=== PATIENT | male | born 1955 | race African-American/Black ===

== ENCOUNTER 2025-07-12 03:42 | Inpatient (IN) | payer MEDICARE, OTHER ==
[~2025-07-12] VITALS: Ht 149.9 cm; Wt 62.1 kg
[2025-07-12] MEDS ORDERED: ONDANSETRON HCL/PF 4 MG/2 ML VIAL ONE (04:21)
[2025-07-12] MEDS ORDERED: ACETAMINOPHEN ES 500 MG TABLET ONE (04:22)
[2025-07-12] MEDS: ONDANSETRON HCL/PF 4 MG/2 ML VIAL IVP ONE (04:25)
[2025-07-12] MEDS: IV NS 0.9% 1,000 ML BAG IV ONE (04:25)
[2025-07-12] MEDS: ACETAMINOPHEN ES 500 MG TABLET PO ONE (04:30)
[2025-07-12 04:39] LABS: PLATELET COUNT (AUTO) 349 K/uL (150-450); RED BLOOD CELL COUNT(AUTO) 4.37 MIL/uL (4.5-6.0); RED CELL DISTRIBUTION WIDTH 15.7 % (11.5-15.0); WHITE BLOOD COUNT (AUTO) 16.4 K/uL (4.3-11.0)
[2025-07-12 04:40] LABS: APPEARANCE,URINE SLIGHTLY CLOUDY (CLEAR); BLOOD, URINE TRACE Ery/uL (NEGATIVE); LEUKOCYTE ESTERASE ,URINE 2+ (NEGATIVE); NITRITE, URINE POSITIVE (NEGATIVE); UGLUCOSE NEGATIVE (NEGATIVE)
[2025-07-12 04:52] LABS: INR 1.03 (0.91-1.10)
[2025-07-12 04:54] LABS: ADD URINE CULTURE YES
[2025-07-12 04:56] LABS: LACTIC ACID 2.1 mmol/L (0.4-2.0)
[2025-07-12 04:59] LABS: CALCIUM, SERUM 8.7 mg/dL (8.5-10.1); CREATININE 1.3 mg/dL (0.6-1.3); SODIUM SERUM 134 mmol/L (136-145); UREA NITROGEN, BLOOD 19 mg/dL (7-18)
[2025-07-12 05:05] LABS: ASPARTATE AMINOTRANSFERASE 17 U/L (15-37); TOTAL PROTEIN, SERUM 8.0 g/dL (6.4-8.2)
[2025-07-12] MEDS ORDERED: CEFTRIAXONE 1GM BAG (ER ONLY) 50 ML IV ONE (05:41)
[2025-07-12] MEDS ORDERED: AZITHROMYCIN 500 MG VIAL ONE (05:41)
[2025-07-12] MEDS: CEFTRIAXONE 1GM BAG (ER ONLY) 1 GM/50 ML PIGGYBACK IV ONE (05:46)
[2025-07-12] MEDS ORDERED: ONDANSETRON HCL/PF 4 MG/2 ML VIAL IVP PRN (06:00)
[2025-07-12] MEDS ORDERED: MAGNESIUM HYDROXIDE 30 ML UDC PO PRN (06:00)
[2025-07-12] MEDS ORDERED: DEXTROSE 50%-WATER 50 ML DISP.SYRIN IV PRN (06:00)
[2025-07-12] MEDS ORDERED: Z GUARD REMEDY 4 OZ OINT TP PRN (06:00)
[2025-07-12] MEDS ORDERED: MAG HYDROX/AL HYDROX/SIMETH 30 ML UDC PO PRN (06:00)
[2025-07-12] MEDS: AZITHROMYCIN 500 MG in IV D5W 250 ML IV SCH (06:01)
[2025-07-12] MEDS ORDERED: ENOXAPARIN SODIUM 40 MG/0.4 ML DISP.SYRIN SQ ONE (06:54)
[2025-07-12] MEDS: ENOXAPARIN SODIUM 40 MG/0.4 ML DISP.SYRIN SQ SCH (06:55)
[2025-07-12] MEDS ORDERED: PANTOPRAZOLE 40 MG TABLET.DR PO ONE (07:28)
[2025-07-12] MEDS: PANTOPRAZOLE 40 MG TABLET.DR PO SCH (07:29)
[2025-07-12] MEDS: BLOOD SUGAR DIAGNOSTIC 1 EACH STRIP IN SCH (07:39)
[2025-07-12 08:00] VITALS: BP 115/79; TEMP 98.1; O2SAT 92
[2025-07-12 10:46] VITALS: BP 115/79; TEMP 98.1; O2SAT 92
[2025-07-12] MEDS: INSULIN REGULAR, HUMAN 100 UNIT/ML 3 ML VIAL SQ PRN (12:02)
[2025-07-12] MEDS ORDERED: DOSING PER PHARMACY-CEFEPIME IVPB XX PRN (12:30)
[2025-07-12] MEDS: DOXYCYCLINE HYCLATE (100 MG) 100 MG TABLET PO SCH (12:56)
[2025-07-12] MEDS: IV NS 0.9% 1,000 ML IV PRN (13:04)
[2025-07-12] MEDS: CEFEPIME 1 GM in IV D5W 50 ML IV SCH (13:18)
[2025-07-12] MEDS: ACETAMINOPHEN 325 MG TABLET PO PRN (13:23)
[2025-07-12 14:16] LABS: CREATININE, URINE 129.0 MG/DL (30.0-125.0); URINE SODIUM, RANDOM 40.0 mmol/l (40-220); URINE TOTAL PROTEIN 24.4 mg/dL (0-11.9)
[2025-07-12 16:00] VITALS: BP 97/72; TEMP 98.6; O2SAT 99
[2025-07-12 20:00] VITALS: BP 118/67; TEMP 100.6; O2SAT 100
[2025-07-13] VITALS: BP 138/81; TEMP 99.3; O2SAT 100
[2025-07-13] MEDS ORDERED: CEFTRIAXONE 1 G in IV D5W 50 ML IV SCH (07:00)
[2025-07-13] MEDS ORDERED: AZITHROMYCIN 500 MG in IV D5W 250 ML IV SCH (08:00)
[2025-07-13 09:08] LABS: PLATELET COUNT (AUTO) 282 K/uL (150-450); RED BLOOD CELL COUNT(AUTO) 3.77 MIL/uL (4.5-6.0); RED CELL DISTRIBUTION WIDTH 16.1 % (11.5-15.0); WHITE BLOOD COUNT (AUTO) 12.4 K/uL (4.3-11.0)
[2025-07-13 09:18] LABS: CALCIUM, SERUM 8.2 mg/dL (8.5-10.1); CREATININE 1.7 mg/dL (0.6-1.3); PHOSPHORUS 2.7 mg/dL (2.5-4.9); SODIUM SERUM 139.0 mmol/L (136-145); UREA NITROGEN, BLOOD 21.0 mg/dL (7-18)
[2025-07-13] MEDS: HYDROCODONE/APAP 5/325MG TABLET PO PRN (12:48)
[2025-07-13] MEDS ORDERED: METO25TA4 PO (13:17)
[2025-07-13] MEDS ORDERED: POLY17PO4 PO (13:17)
[2025-07-13] MEDS ORDERED: FAMO20TA8 PO (13:17)
[2025-07-13] MEDS ORDERED: ASPI-1169 PO (13:17)
[2025-07-13] MEDS ORDERED: MELA3TAB41 PO (13:17)
[2025-07-13] MEDS ORDERED: DOCU100C36 PO (13:17)
[2025-07-13] MEDS ORDERED: ACET-2030 PO (13:17)
[2025-07-13] MEDS ORDERED: CYCL10TA9 PO (13:17)
[2025-07-13] MEDS ORDERED: MAGN200T4 PO (13:17)
[2025-07-13] MEDS ORDERED: BISA-79 PO (13:17)
[2025-07-13] MEDS ORDERED: CRAN425C6 PO (13:17)
[2025-07-13] MEDS ORDERED: PEG15DRO8 RIGHTEYE (13:17)
[2025-07-13] MEDS ORDERED: CRAN3875 PO (13:17)
[2025-07-13] MEDS ORDERED: TRAM50TA2 PO (13:17)
[2025-07-13] MEDS ORDERED: PRED5DRO24 RIGHTEYE (13:17)
[2025-07-13] MEDS ORDERED: SENN8.6T19 PO (13:17)
[2025-07-13] MEDS ORDERED: ACET-868 PO (13:17)
[2025-07-13] MEDS ORDERED: MAGN400O6 PO (13:17)
[2025-07-13] MEDS ORDERED: OXYC-121 PO (13:17)
[2025-07-13] MEDS ORDERED: DORZ10DR11 RIGHTEYE (13:17)
[2025-07-13 20:00] VITALS: BP 99/65; TEMP 98.1; O2SAT 96
[2025-07-14] VITALS: BP 92/48; TEMP 98.4; O2SAT 97
[2025-07-14 04:00] VITALS: BP 90/52; TEMP 98.2; O2SAT 96
[2025-07-14 07:53] LABS: PLATELET COUNT (AUTO) 260 K/uL (150-450); RED BLOOD CELL COUNT(AUTO) 3.81 MIL/uL (4.5-6.0); RED CELL DISTRIBUTION WIDTH 16.1 % (11.5-15.0); WHITE BLOOD COUNT (AUTO) 11.5 K/uL (4.3-11.0)
[2025-07-14 08:00] VITALS: BP 99/69; TEMP 98.2; O2SAT 96
[2025-07-14 08:35] LABS: CALCIUM, SERUM 8.2 mg/dL (8.5-10.1); CREATININE 1.3 mg/dL (0.6-1.3); SODIUM SERUM 137.0 mmol/L (136-145); UREA NITROGEN, BLOOD 17.0 mg/dL (7-18)
[2025-07-14 12:00] VITALS: BP 91/66; TEMP 98.2; O2SAT 96
[2025-07-14] MEDS: CYCLOBENZAPRINE 10 MG TABLET PO PRN (13:47)
[2025-07-14 16:00] VITALS: BP 118/69; TEMP 99.8; O2SAT 96
[2025-07-14 20:00] VITALS: BP 120/64; TEMP 100.3; O2SAT 97
[2025-07-14] MEDS: MEROPENEM 1 G in IV NS 0.9% 100 ML IV SCH (21:24)
[2025-07-15] VITALS: BP 115/79; TEMP 97.9; O2SAT 99
[2025-07-15 04:00] VITALS: BP 103/65; TEMP 98.9; O2SAT 99
[2025-07-15 08:00] VITALS: BP 126/78; TEMP 98.6; O2SAT 99
[2025-07-15 08:33] LABS: PLATELET COUNT (AUTO) 285 K/uL (150-450); RED BLOOD CELL COUNT(AUTO) 3.65 MIL/uL (4.5-6.0); RED CELL DISTRIBUTION WIDTH 15.8 % (11.5-15.0); WHITE BLOOD COUNT (AUTO) 12.7 K/uL (4.3-11.0)
[2025-07-15 08:39] LABS: CALCIUM, SERUM 8.3 mg/dL (8.5-10.1); CREATININE 1.3 mg/dL (0.6-1.3); SODIUM SERUM 138.0 mmol/L (136-145); UREA NITROGEN, BLOOD 15.0 mg/dL (7-18)
[2025-07-15 12:00] VITALS: BP 117/80; TEMP 98; O2SAT 99
[2025-07-15] MEDS ORDERED: CYCL10TA9 PO (14:36)
[2025-07-15] MEDS ORDERED: MERO1PIG IV (14:36)
[2025-07-15 16:00] VITALS: BP 122/74; TEMP 98; O2SAT 97
== END 2025-07-15 17:15 | DRG 698 ==
LOC: ER 03:44 → TELE 04:58 → TELE1 07-13 06:55
PROVIDERS: ADMIT Nurse Practitioner Acute Care; ATTEND Nurse Practitioner Acute Care
DX: T83.511A Infection and inflammatory reaction due to indwelling urethral catheter, initial encounter (principal); A41.9 Sepsis, unspecified organism; G82.50 Quadriplegia, unspecified; G92.8 Other toxic encephalopathy; J15.9 Unspecified bacterial pneumonia; J96.91 Respiratory failure, unspecified with hypoxia; E87.1 Hypo-osmolality and hyponatremia; D68.59 Other primary thrombophilia; E87.20 Acidosis, unspecified; N17.9 Acute kidney failure, unspecified; Z16.12 Extended spectrum beta lactamase (ESBL) resistance; N39.0 Urinary tract infection, site not specified; I10 Essential (primary) hypertension; E11.9 Type 2 diabetes mellitus without complications; H54.61 Unqualified visual loss, right eye, normal vision left eye; D63.8 Anemia in other chronic diseases classified elsewhere; E78.5 Hyperlipidemia, unspecified; E86.0 Dehydration; E83.89 Other disorders of mineral metabolism; Y84.6 Urinary catheterization as the cause of abnormal reaction of the patient, or of later complication, without mention of misadventure at the time of the procedure; Z74.01 Bed confinement status; Z87.442 Personal history of urinary calculi; B96.20 Unspecified Escherichia coli [E. coli] as the cause of diseases classified elsewhere; B95.2 Enterococcus as the cause of diseases classified elsewhere; R53.1 Weakness; R62.7 Adult failure to thrive; N31.9 Neuromuscular dysfunction of bladder, unspecified; Z66 Do not resuscitate; F03.90 Unspecified dementia, unspecified severity, without behavioral disturbance, psychotic disturbance, mood disturbance, and anxiety; R53.81 Other malaise
CPT/HCPCS: 36415; 70450-TC; 71045-TC; 76770-TC; 80048-TC; 80076-TC; 81001; 82570-TC; 82962-TC; 83605-TC; 83735-TC; 84100-TC; 84300-TC; 84484-TC; 85025-TC; 85730-TC; 87040-TC; 87081-TC; 87086-TC; 87186-TC; 92526; 92611; A4223; G0378; J0456; J0692; J0696; J1650; J1815; J2185; J2405; J7030; J7060